=== PATIENT | female | born 1960 ===

== ENCOUNTER 2018-12-05 07:32 | Emergency (ER) | payer MEDICAID ==
[2018-12-05 07:40] VITALS: BP 126/83; PULSE 82; TEMP 99; O2SAT 96
--- NOTE | 2018-12-05 07:41 | C.PDOC ---
History Of Present Illness 58 y/o female,w/PMhx of hypothyroidism, presents to the ER complaining of lower back pain which has been present for the past 4 weeks. Patient states that the pain became worse 4 days ago. Patient reports that she pushed a heavy sofa which caused the worsened pain. 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 She notes that the pain is worse on the left side. She states that the pain is worse with bending over and sitting for long periods of time. She reports that she took Tylenol this morning with mild relief. Denies having fever,chills, abdominal pain, urinary symptoms, bowel bladder incontinence, vaginal bleeding, weakness, numbness, or parasthesias. Time Seen by Provider: 12/05/18 07:33 Chief Complaint (Nursing): Back Pain History Per: Patient History/Exam Limitations: no limitations Onset/Duration Of Symptoms: Days Current Symptoms Are (Timing): Still Present Severity: Moderate Past Medical History Reviewed: Historical Data, Nursing Documentation, Vital Signs Vital Signs: Last Vital Signs Temp 99 F 12/05/18 07:36 Pulse 82 12/05/18 07:36 Resp 20 12/05/18 07:36 BP 126/83 12/05/18 07:36 Pulse Ox 96 12/05/18 07:36 - Medical History PMH: Hyperthyroidism Surgical History: - [facility] APPLICATION OF SPLINT (03/18/13) CLOSURE SKIN & SUBCUTANEOUS NEC (03/18/13) OTHER SKIN & SUBQ I D (03/18/13) Family History: States: No Known Family Hx - Social History Hx Tobacco Use: No Hx Alcohol Use: No Hx Substance Use: No - Immunization History Hx Tetanus Toxoid Vaccination: Yes Hx Influenza Vaccination: Yes (09/2018) Hx Pneumococcal Vaccination: No Review Of Systems Except As Marked, All Systems Reviewed And Found Negative. Constitutional: Negative for: Fever, Chills Gastrointestinal: Negative for: Abdominal Pain Genitourinary: Negative for: Dysuria, Incontinence, Hematuria, Vaginal Bleeding Musculoskeletal: Positive for: Back Pain Neurological: Negative for: Weakness, Numbness Physical Exam - Physical Exam Appears: Non-toxic, No Acute Distress Skin: Normal Color, Warm, Dry Head: Atraumatic, Normacephalic Eye(s): bilateral: Normal Inspection Nose: Normal Oral Mucosa: Moist Neck: Supple Chest: Symmetrical Cardiovascular: Rhythm Regular Respiratory: Normal Breath Sounds Gastrointestinal/Abdominal: Soft, No Tenderness, No Guarding, No Rebound Back: No Vertebral Tenderness, Paraspinal Tenderness (mild left sided lumbar paraspinal tenderness) Neurological/Psych: Oriented x3, Normal Speech ED Course And Treatment O2 Sat by Pulse Oximetry: 96 (RA) Pulse Ox Interpretation: Normal - Other Rad N-Jhi-Mikrym Spine X-Ray: Viewed By Me, Read By Radiologist Interpretation: Date of service: 12/05/2018. PROCEDURE: Radiographs of the Lumbar Spine. HISTORY: back pain. COMPARISON: No prior. FINDINGS: BONES: Normal alignment. No listhesis. No fracture. DISC SPACES: Unremarkable. OTHER FINDINGS: Extensive stool throughout the colon present. IMPRESSION: Extensive stool retention. Otherwise unremarkable adiographs of the lumbar spine. Medical Decision Making Medical Decision Making: Plan: --C-Bgm-Yzfrlf Spine --Lidoderm Patch --Toradol IM XR read as unremarkable for acute pathology by me Patient reports resolution of pain with medications. Comfortable with discharge home. Advised PMD and orthopedic followup, prescriptions for pain medicine and muscle relaxers provided. Diagnostic testing results and plan of care discussed with patient. Strict instructions given regarding prescription use, importance of followup, and signs/symptoms to return to ER including numbness, paresthesia, saddle anesthesia, bowel/bladder incontinence, or any other new/worsening symptoms. Pt verbalized understanding of discussion. Patient is A&Ox3, ambulating with steady gait, with vital signs stable for discharge. Disposition - Disposition Referrals: [facility] [Outside] Sivakumar Stubbs III, MD [Staff Provider] - Disposition: HOME/ ROUTINE Disposition Time: 08:45 Condition: IMPROVED Additional Instructions: Ibuprofeno cada 8 horas segn sea necesario para el dolor. Flexeril diariamente antes de acostarse cuando sea necesario Lidoderm parches diariamente, 12 horas, 12 horas de descanso. Seguimiento con ortopedia en 2 cr. Seguimiento con primaria dentro de 2 cr. Regrese a la ely de emergencias con cualquier sntoma nuevo o que empeore Prescriptions: Cyclobenzaprine [Cyclobenzaprine HCl] 10 mg PO HS PRN #7 tab PRN Reason: Muscle Spasm Ibuprofen [Motrin Tab] 600 mg PO Q8 #30 tab Lidocaine 5% [Lidoderm] 1 ea TD DAILY PRN #30 patch PRN Reason: Pain, Mild (1-3) Instructions: Low Back Pain (DC), Back Exercises Forms: Gen Discharge Inst Bur[place]ian, [facility] (Burundian), Work Excuse Print Language: [place] - Clinical Impression Clinical Impression: Low back strain - PA / [employer]LE [employer] WORK[employer] / Resident Statement MD/DO has reviewed & agrees with the documentation as recorded. - Scribe Statement The provider has reviewed the documentation as recorded by the Nishant Lopez Provider Attestation All medical record entries made by the Nishant were at my direction and personally dictated by me. I have reviewed the chart and agree that the record accurately reflects my personal performance of the history, physical exam, medical decision making, and the department course for this patient. I have also personally directed, reviewed, and agree with the discharge instructions and disposition.
[2018-12-05] MEDS ORDERED: Lidocaine 5% Patch TD STA (08:01)
[2018-12-05] MEDS ORDERED: Lidocaine 5% Patch TD ONE (08:11)
[2018-12-05 08:57] VITALS: RESP 18
--- NOTE | 2018-12-05 12:26 | RAD ---
Date of service: 12/05/2018 PROCEDURE: Radiographs of the Lumbar Spine. HISTORY: back pain COMPARISON: No prior. FINDINGS: BONES: Normal alignment. No listhesis. No fracture. DISC SPACES: Unremarkable. OTHER FINDINGS: Extensive stool throughout the colon present IMPRESSION: Extensive stool retention. Otherwise unremarkable adiographs of the lumbar spine.
== END 2018-12-05 08:57 | disposition home or self-care (01) ==
LOC: C.ER 07:32
DX: S39.012A Strain of muscle, fascia and tendon of lower back, initial encounter (principal); X50.0XXA Overexertion from strenuous movement or load, initial encounter; Y92.89 Other specified places as the place of occurrence of the external cause; Y99.0 Civilian activity done for income or pay
CPT/HCPCS: 72100; 96372; 99283; J1885